=== PATIENT | male | born 1965 | race African-American/Black ===

== ENCOUNTER 2016-07-24 14:17 | Emergency (ER) | payer SELFPAY ==
[~2016-07-24] VITALS: Ht 170.2 cm; Wt 68.0 kg
[2016-07-24 14:20] VITALS: BP 138/74
[2016-07-24] MEDS ORDERED: BACITRACIN TOP OINT 1 UD PKG TOP ONE (14:45)
[2016-07-24] MEDS ORDERED: LIDOCAINE 1% HCL (LOCAL ANESTH.) INJ 20ML MDV IJ ONE (14:45)
[2016-07-24] MEDS ORDERED: HYDROcodone-ACET 10/325MG TAB PO ONE (14:45)
[2016-07-24] MEDS ORDERED: cefTRIAXone SOD 1,000 MG VL IM ONE (16:00)
== END 2016-07-24 16:22 | disposition home or self-care (01) ==
LOC: ER 14:17
DX: S51.812A Laceration without foreign body of left forearm, initial encounter (principal); W45.8XXA Other foreign body or object entering through skin, initial encounter; Y93.89 Activity, other specified; Y99.8 Other external cause status; Y92.89 Other specified places as the place of occurrence of the external cause; Z85.46 Personal history of malignant neoplasm of prostate
CPT/HCPCS: 12045; 96372; 99284; J0696; J2001

== ENCOUNTER 2016-08-05 07:35 | Emergency (ER) | payer MEDICAID ==
[~2016-08-05] VITALS: Ht 170.2 cm; Wt 66.7 kg
[2016-08-05 07:54] VITALS: BP 133/80
== END 2016-08-05 08:36 | disposition home or self-care (01) ==
LOC: ER 07:35
DX: S51.812D Laceration without foreign body of left forearm, subsequent encounter (principal); Z48.02 Encounter for removal of sutures; Z88.6 Allergy status to analgesic agent

== ENCOUNTER 2016-08-12 08:13 | Emergency (ER) | payer MEDICAID ==
[~2016-08-12] VITALS: Ht 170.2 cm; Wt 68.0 kg
[2016-08-12 08:33] VITALS: BP 125/70
[2016-08-12] MEDS ORDERED: BACITRACIN TOP OINT 1 UD PKG TOP ONE ×2 (08:41→09:00)
== END 2016-08-12 09:50 | disposition home or self-care (01) ==
LOC: ER 08:15
DX: S51.812D Laceration without foreign body of left forearm, subsequent encounter (principal); J20.9 Acute bronchitis, unspecified; Z88.8 Allergy status to other drugs, medicaments and biological substances; Z48.01 Encounter for change or removal of surgical wound dressing
CPT/HCPCS: 73090

== ENCOUNTER 2018-11-05 10:44 | Emergency (ER) | payer MEDICAID ==
[~2018-11-05] VITALS: Ht 170.2 cm; Wt 70.8 kg
[2018-11-05 11:18] VITALS: BP 125/71
[2018-11-05] MEDS ORDERED: HYDROcodone-ACET 10/325MG TAB PO ONE (12:15)
== END 2018-11-05 12:37 | disposition home or self-care (01) ==
LOC: ER 10:48
DX: S52.571A Other intraarticular fracture of lower end of right radius, initial encounter for closed fracture (principal); S52.612A Displaced fracture of left ulna styloid process, initial encounter for closed fracture; M21.932 Unspecified acquired deformity of left forearm; F17.210 Nicotine dependence, cigarettes, uncomplicated; E78.5 Hyperlipidemia, unspecified; Z88.6 Allergy status to analgesic agent; V87.8XXA Person injured in other specified noncollision transport accidents involving motor vehicle (traffic), initial encounter; Y93.55 Activity, bike riding; Y92.488 Other paved roadways as the place of occurrence of the external cause; Y99.8 Other external cause status
CPT/HCPCS: 29125; 73110; 73130

== ENCOUNTER 2019-11-09 14:53 | Emergency (ER) | payer MEDICAID ==
[~2019-11-09] VITALS: Ht 170.2 cm; Wt 70.8 kg
[2019-11-09 16:46] VITALS: BP 111/69
== END 2019-11-09 17:24 | disposition home or self-care (01) ==
LOC: ER 14:53
DX: S82.892D Other fracture of left lower leg, subsequent encounter for closed fracture with routine healing (principal); X58.XXXD Exposure to other specified factors, subsequent encounter
CPT/HCPCS: 29515; 73610

== ENCOUNTER 2021-09-26 21:46 | Emergency (ER) | payer MEDICAID ==
[~2021-09-26] VITALS: Ht 170.2 cm; Wt 72.6 kg
[2021-09-26 22:23] VITALS: BP 124/75
[2021-09-26 22:42] LABS: Basophils # (auto) 0 10 ^3/uL (0-0.2); Eosinophils # (auto) 0.2 10 ^3/uL (0-0.8); Eosinophils % (auto) 5.5 % (0.0-7.0); Hematocrit 38.6 % (41.0-53.0); Hemoglobin 13.1 g/dL (13.5-17.5); Lymphocytes # (auto) 1.8 10 ^3/uL (0.4-5.4); Lymphocytes % (auto) 38.5 % (10.0-50.0); Mean Corpuscular Hemoglobin 29.3 pg (28.0-32.0); Mean Corpuscular Volume 86.2 fL (80.0-100.0); Monocytes # (auto) 0.4 10 ^3/uL (0-1.3); Monocytes % (auto) 9.7 % (0.0-12.0); Neutrophils # (auto) 2.1 10 ^3/uL (1.6-8.6); Neutrophils % (auto) 45.3 % (37.0-80.0); Nucleated Red Blood Cells % 0.1 %; Red Blood Cells 4.48 10^6/uL (4.5-5.90); Red Cell Distribution Width 13.8 % (11.8-14.3); White Blood Cell 4.6 10^3/uL (4.4-10.8)
[2021-09-26 23:00] LABS: Albumin 3.7 g/dL (3.4-5.0); Calcium 8.4 mg/dL (8.5-10.1); Potassium 3.7 mmol/L (3.5-5.1)
[2021-09-26 23:05] LABS: BUN/Creatinine Ratio 9.1; Bilirubin, Total 0.4 mg/dL (0.2-1.0); Total Protein 7.5 g/dL (6.4-8.2)
[2021-09-27] MEDS ORDERED: ALUM & MAG HYDROX-SIMETH LIQ(MAALOX) 30 ML PO ONE
[2021-09-27] MEDS ORDERED: OXYCODONE W/ ACETAMINOPHEN 5/325MG TABLET PO ONE (01:30)
[2021-09-27 01:32] LABS: Urine Bacteria NONE SEEN /hpf (None Seen); Urine Blood TRACE /uL (Negative); Urine Mucus FEW (None Seen); Urine Specific Gravity 1.007 (1.001-1.035); Urine WBC 14 /hpf (0 - 3)
[2021-09-27] MEDS ORDERED: CIPR-173 PO (01:54)
[2021-09-27] MEDS ORDERED: CIPROFLOXACIN HCL 500 MG TAB PO ONE (02:15)
[2021-09-27] MEDS ORDERED: KETOROLAC TROMETH 60MG/2ML VIAL IM ONE (02:15)
== END 2021-09-27 09:07 | disposition left against medical advice (07) ==
LOC: ER 21:46 → EDUNIT# 21:46 → EDBD 21:46 → ER 09-27 09:07
DX: N39.0 Urinary tract infection, site not specified (principal); R94.31 Abnormal electrocardiogram [ECG] [EKG]; E78.5 Hyperlipidemia, unspecified; F17.210 Nicotine dependence, cigarettes, uncomplicated; Z88.6 Allergy status to analgesic agent
CPT/HCPCS: 36415; 71045; 74176; 80053; 81001; 83880; 84484; 85025; 93005; 96372; J1885

== ENCOUNTER 2021-10-06 06:40 | Emergency (ER) | payer SELFPAY ==
[~2021-10-06 06:40] MED LIST: CIPR-173 PO
[2021-10-06 06:55] VITALS: BP 117/87
== END 2021-10-06 08:33 | disposition home or self-care (01) ==
LOC: EDBD 06:40 → ER 06:40
DX: S09.90XA Unspecified injury of head, initial encounter (principal); E78.5 Hyperlipidemia, unspecified; F17.210 Nicotine dependence, cigarettes, uncomplicated; Z79.2 Long term (current) use of antibiotics; Z88.8 Allergy status to other drugs, medicaments and biological substances; X58.XXXA Exposure to other specified factors, initial encounter; Y93.89 Activity, other specified; Y92.89 Other specified places as the place of occurrence of the external cause; Y99.8 Other external cause status

== ENCOUNTER 2021-12-08 13:38 | Emergency (ER) | payer MEDICAID ==
[~2021-12-08] VITALS: Ht 170.2 cm; Wt 159.0 kg
[2021-12-08] MEDS ORDERED: HYDROcodone-ACET 10/325MG TAB PO ONE (17:00)
[2021-12-08 17:45] VITALS: BP 118/67
[2021-12-08] MEDS ORDERED: HYDR-4902 PO (18:17)
== END 2021-12-08 18:25 | disposition home or self-care (01) ==
LOC: ER 13:38
DX: S22.42XA Multiple fractures of ribs, left side, initial encounter for closed fracture (principal); S63.502A Unspecified sprain of left wrist, initial encounter; S83.91XA Sprain of unspecified site of right knee, initial encounter; N20.0 Calculus of kidney; J44.9 Chronic obstructive pulmonary disease, unspecified; E78.5 Hyperlipidemia, unspecified; F17.210 Nicotine dependence, cigarettes, uncomplicated; Z79.899 Other long term (current) drug therapy; Z88.8 Allergy status to other drugs, medicaments and biological substances; W18.39XA Other fall on same level, initial encounter; Y93.61 Activity, american tackle football; Y92.89 Other specified places as the place of occurrence of the external cause; Y99.8 Other external cause status
CPT/HCPCS: 71101; 71250; 73110; 73562